=== PATIENT | male | born 1985 | race Caucasian/White ===

== ENCOUNTER 2025-03-24 01:31 | Observation (INO) ==
--- NOTE | 2025-03-24 01:49 | Emergency Department Note ---
Impression & Plan Acute dehydration, Abdominal pain, ROBERT (acute kidney injury), Nausea & vomiting, Abnormal behavior, High serum lactate ED Provider Note CHIEF COMPLAINT: Vomiting, muscle pain HISTORY OF PRESENTING ILLNESS: This 39-year-old male patient presents to the emergency department for evaluation of abdominal pain, nausea, and vomiting. Symptoms started this morning. Symptoms have gotten worse throughout the day. He now has muscle pain and thinks he is dehydrated. The patient is also concerned that he is septic because he has a history of sepsis. He has been seen recently at different ERs over the past couple weeks for his symptoms without cause found per patient. He has an appointment with GI in May. The patient has a history of cannabinoid hyperemesis, but states that this feels much different than his typical symptoms. The patient states that he has not had marijuana in the past 2 days. He denies any other drug use. He denies any alcohol use. He denies any injury or trauma. He denies any fevers, cough, or URI symptoms. REVIEW OF SYSTEMS: See HPI for pertinent positives and pertinent negatives. ALLERGIES: Wellbutrin MEDICATIONS: [place], Effexor, Lamictal PAST MEDICAL HISTORY: Manic depressive disorder. History of CCY. PHYSICAL EXAM: VITALS: Vitals are noted on the nurse's note and reviewed by myself. GENERAL: The patient was very anxious appearing on exam and had racing thoughts at times, but then was clear in his thoughts other times. The patient was rocking on his hands and knees on the bed saying that his abdominal pain and nausea was very bad. The patient also asked multiple times for narcotic pain medication stating that the other ER usually give him narcotics. SKIN: The patient has multiple tattoos. He has some redness to the bilateral thighs, but difficult to assess if this was secondary to him rocking on the bed or from a possible developing infection. No obvious fluctuance, induration, pointing, or discharge. The patient does have a couple areas of dry skin and eczema scattered on his body, but mainly to his bilateral knees. No other obvious rashes or skin lesions of concern noted. Capillary refill <2 sec. EYES: PERRLA. EOMI without pain. Conjunctivae without injection, sclerae without icterus. NOSE: Patent without discharge. MOUTH: Mucous membranes moist. Uvula midline. Airway patent. NECK: Supple without nuchal rigidity. HEART: Tachycardic without murmurs gallops or rubs. LUNGS: Clear to auscultation bilaterally without wheezes, rales or rhonchi. No retractions or accessory muscle use. ABDOMEN: Positive bowel sounds x 4. Normal tympanic percussion. Soft, diffusely tender to palpation over his entire abdomen. No masses or hepatosplenomegaly. No CVA tenderness. The patient is tender to palpation even with light palpation, but no rigidity or rebound tenderness. No focal RLQ or LLQ tenderness. MUSCULOSKELETAL: No gross musculoskeletal defects. Full range of motion of the bilateral upper and lower extremities. Strength 5/5 and equal in the bilateral upper and lower extremities. Peripheral pulses 2+ and equal in the bilateral upper and lower extremities. NEURO: Patient was alert and oriented, but was acting as above in the general exam. The patient denies any suicidal or homicidal ideation. DIFFERENTIAL DIAGNOSIS: Differential diagnosis includes hepatitis, pancreatitis, cholecystitis, cholelithiasis, appendicitis, kidney stone, pyelonephritis, UTI, gastritis, gastroenteritis, mesenteric adenitis, obstruction, constipation, hernia, abdominal abscess, perforation, diverticulitis, IBD, ischemic colitis, abdominal aortic aneurysm, testicular torsion, prostatitis, angina, TN, pericarditis, myocarditis, aortic dissection, pleurisy, pneumothorax, PE, pneumonia, pneumomediastinum, esophagitis, esophageal spasm, GERD, perforated esophagus, perforated duodenal/gastric ulcer, pancreatitis, cholecystitis, costochondritis, musculoskeletal, bronchitis, URI, or others. ED COURSE AND MEDICAL DECISION MAKING: MEDICATIONS GIVEN: A total of 2.5 L normal saline solution bolus. Tylenol 1000 mg IV and Zofran 4 mg IV. Reglan 10 mg IV. Ativan 1 mg IV. Phenergan 25 mg IV. Protonix 40 mg IV and Pepcid 20 mg IV. Fentanyl 50 mcg IV. Cefepime 2 g IV. Labetalol 5 mg IV. MONITOR: Continuous plumbing service technician: Order was placed for continuous plumbing service technician. Patient was placed on the plumbing service technician and continuous pulse ox. Patient was noted to be in sinus tachycardia at an initial rate of 110 bpm per my interpretation. EKG: EKG was interpreted by myself as sinus tachycardia at 119 bpm, but no acute ST or T wave changes. QT/QTc of 362/509. INTERPRETATION OF LABS: I interpreted the labs with full lab results as below in the lab section of this note. Laboratory results pertinent to the emergent complaint are discussed in the MDM section below. The patient was advised to follow up with their PCP and/or specialist(s) for further outpatient monitoring and management of any abnormal results. INTERPRETATION OF IMAGING: Imaging studies were interpreted by myself and read by radiology as per the imaging section of this note. The patient was advised to follow up with their PCP and/or specialist(s) for further outpatient management of any non-emergent abnormal findings. CT scan of the abdomen pelvis with IV contrast showed mild prostatomegaly with chronic cystitis/obstructive changes in urinary bladder as well as a subcentimeter left renal simple cortical cyst. No other acute abnormalities noted. Chest x-ray read by radiology as negative for acute cardiopulmonary etiology. However, per my interpretation there was concern for possible abnormality on the right side. Therefore, CTA of the chest was obtained. CTA of the chest with IV contrast showed no evidence for PE or other acute cardiopulmonary etiology. The distal esophagus shows mild edematous wall thickening with mucosal hyperenhancement and periesophageal fat stranding suggestive of esophagitis. No evidence for esophageal perforation, rupture, or tear. CT scan of the head without contrast was negative for acute intracranial abnormality. CONSULTATIONS: On-call hospitalist CRITICAL CARE: I have personally spent 45 minutes of critical care time in the direct management of this patient. This includes bedside care, interpretation of diagnostic studies, and testing, discussion with consultants, patient, and family members, and other required patient management activities. This 45 minutes is in excess of all separately billable procedures. MDM SUMMARY: I examined the patient. The patient presents for evaluation of abdominal pain, nausea, and vomiting. However, on exam the patient appears very anxious and somewhat jittery and then would rock on the bed on his hands and knees and was acting somewhat appropriate. There was concern that the patient was under the influence of drugs including possible meth or ecstasy. However, the patient denies any drug use other than marijuana use 2 days ago. He denies any alcohol use. He denies any injury or trauma. He states that he is not had any fevers or URI symptoms, but does have a history of sepsis. The patient states that he has been having episodes of abdominal pain recently with unremarkable workups in other ERs. The patient has an appoint with GI in May. The patient states that he has a history of cannabinoid hyperemesis syndrome, but this feels much different. An IV lock was placed and labs were drawn. The patient was initially given 1 L normal saline solution bolus, IV Tylenol, IV Zofran, and IV Reglan. The patient had some additional nausea and vomiting and was given Phenergan 25 mg IV. After the patient's lactate came back elevated at 3.5 and the patient was given an additional 1 L normal saline solution bolus per his actual body weight. However, the patient's lactate was still elevated at 3.0 even after the 2 L of fluid so he was given an additional 500 mL liter normal saline solution bolus per his actual body weight calculation. Blood cultures were drawn and he was given cefepime 2 g IV. No obvious source for infection other than possible developing cellulitis to his bilateral thighs which may also just be red from him rolling around on the bed. White blood cell count normal at 7.15. Hemoglobin normal at 17.6. Platelet count elevated at 408. PT/INR were normal. Sodium low at 134, potassium low at 3.4, anion gap elevated at 14, BUN elevated at 26, creatinine elevated at 1.89, glucose elevated 139, and total bilirubin elevated at 2.3. Lipase normal. High-sensitivity troponin normal. Procalcitonin normal. Initial lactate elevated at 3.5 with repeat still elevated at 3.0. Urinalysis after the 2.5 L of normal saline solution was negative. Urine drug screen positive for marijuana, but otherwise negative. Medical alcohol level negative. Acetaminophen and salicylate levels negative. Initially a chest x-ray and CT scan of the abdomen and pelvis were obtained. However, after results of the laboratory studies, poor improvement with multiple medications, and continued presentation on exam, a CT scan of the chest as well as CT scan of the head were obtained as well. CT scan of the abdomen pelvis with IV contrast showed mild prostatomegaly with chronic cystitis/obstructive changes in urinary bladder as well as a subcentimeter left renal simple cortical cyst. No other acute abnormalities noted. Chest x-ray read by radiology as negative for acute cardiopulmonary etiology. However, per my interpretation there was concern for possible abnormality on the right side. Therefore, CTA of the chest was obtained. CTA of the chest with IV contrast showed no evidence for PE or other acute cardiopulmonary etiology. The distal esophagus shows mild edematous wall thickening with mucosal hyperenhancement and periesophageal fat stranding suggestive of esophagitis. No evidence for esophageal perforation, rupture, or tear. CT scan of the head without contrast was negative for acute intracranial abnormality. Question whether the patient's symptoms may be secondary to dehydration from cannabinoid hyperemesis syndrome versus sepsis versus SIRS versus other etiology. I had a meaningful discussion about this patient with Dr. Mackay who agrees with my assessment and the treatment plan. The patient is not stable to be discharged home and will require admission. I spoke with the on-call hospitalist who agreed to admit the patient for further evaluation and treatment. Please refer to their dictation for further details. The patient's care was transferred in stable condition. DIAGNOSIS: Dehydration ROBERT Abdominal pain Nausea and vomiting Elevated lactate Abnormal behavior Past Med/Surg History Problem List Hypokalemia Bipolar disorder Hypertension High serum lactate (Acute) Abnormal behavior (Acute) Nausea & vomiting (Acute) ROBERT (acute kidney injury) (Acute) Abdominal pain (Acute) Acute dehydration (Acute) Surgical History History of cholecystectomy Family History Father Crohn's disease Mother Irritable bowel syndrome Social History (Updated 03/24/25 @ 11:01 by Ioana Mathews MD) Smoking Status: Current every day smoker Tobacco Type: E-cigarettes / Vaping Hx Alcohol Use: No Hx Substance Use: Yes Last Used Substance: Days (ago) Preferred Language: German Cable Braider Required: Yes Beliefs That Will Affect Care: None marital status: Single Current Living Situation: Alone current occupational status: employed 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 [employer] Feels Safe at Home: Yes Assistive Devices: None Allergies Allergies Allergy/AdvReac Type Severity Reaction Status Date / Time bupropion [From Wellbutrin] Allergy Verified 03/24/25 08:56 Home Meds Home Medications Medication Instructions Recorded Confirmed Unobtainable 03/24/25 03/24/25 Results & Data (ED) Vital Signs Vital Signs - 24 hr 03/24/25 01:35 03/24/25 02:00 03/24/25 02:24 Temperature 36.6 C Temperature Source Oral Pulse Rate 123 H 112 H Pulse Rate [Apical] 115 H Pulse Rate from SpO2 Sensor Pulse Rhythm [Apical] Respiratory Rate 20 18 Respiratory Effort / Characteristics Non-Labored Spontaneous Respiratory Depth Normal Respiratory Pattern Blood Pressure 158/117 H Blood Pressure [Right Arm] 181/118 H Blood Pressure Mean 130 Blood Pressure Mean [Right Arm] 139 Pulse Oximetry 99 97 Oxygen Delivery Method Room Air Room Air Sepsis Recent Fever Within 48 Hours No Sepsis New/Unexplained Change in Mental Status No Sepsis Action Taken by Nursing No Action Required 03/24/25 02:33 03/24/25 03:03 03/24/25 03:30 Temperature Temperature Source Pulse Rate 112 H 104 H 103 H Pulse Rate [Apical] Pulse Rate from SpO2 Sensor 102 H Pulse Rhythm [Apical] Respiratory Rate 14 18 17 Respiratory Effort / Characteristics Respiratory Depth Respiratory Pattern Blood Pressure 159/113 H 183/106 H Blood Pressure [Right Arm] Blood Pressure Mean 128 131 Blood Pressure Mean [Right Arm] Pulse Oximetry 98 98 98 Oxygen Delivery Method Room Air Room Air Room Air Sepsis Recent Fever Within 48 Hours Sepsis New/Unexplained Change in Mental Status Sepsis Action Taken by Nursing 03/24/25 04:00 03/24/25 04:30 03/24/25 04:44 Temperature 37.1 C Temperature Source Oral Pulse Rate 105 H 103 H Pulse Rate [Apical] Pulse Rate from SpO2 Sensor Pulse Rhythm [Apical] Respiratory Rate 20 18 Respiratory Effort / Characteristics Respiratory Depth Respiratory Pattern Blood Pressure 177/119 H 171/123 H Blood Pressure [Right Arm] Blood Pressure Mean 140 139 Blood Pressure Mean [Right Arm] Pulse Oximetry 98 98 Oxygen Delivery Method Room Air Room Air Sepsis Recent Fever Within 48 Hours Sepsis New/Unexplained Change in Mental Status Sepsis Action Taken by Nursing 03/24/25 05:15 03/24/25 05:15 03/24/25 05:19 Temperature Temperature Source Pulse Rate 115 H Pulse Rate [Apical] 111 H 101 H Pulse Rate from SpO2 Sensor Pulse Rhythm [Apical] Regular Respiratory Rate 15 20 Respiratory Effort / Characteristics Non-Labored Spontaneous Non-Labored Spontaneous Respiratory Depth Normal Normal Respiratory Pattern Regular Regular Blood Pressure 168/116 H Blood Pressure [Right Arm] 168/116 H 146/98 H Blood Pressure Mean Blood Pressure Mean [Right Arm] 133 114 Pulse Oximetry 97 94 Oxygen Delivery Method Room Air Room Air Sepsis Recent Fever Within 48 Hours Sepsis New/Unexplained Change in Mental Status Sepsis Action Taken by Nursing 03/24/25 06:28 03/24/25 06:30 03/24/25 06:34 Temperature Temperature Source Pulse Rate 90 92 H Pulse Rate [Apical] 92 H Pulse Rate from SpO2 Sensor Pulse Rhythm [Apical] Regular Respiratory Rate 17 Respiratory Effort / Characteristics Non-Labored Spontaneous Respiratory Depth Normal Respiratory Pattern Regular Blood Pressure 172/117 H Blood Pressure [Right Arm] 172/117 H Blood Pressure Mean Blood Pressure Mean [Right Arm] 135 Pulse Oximetry 99 Oxygen Delivery Method Room Air Sepsis Recent Fever Within 48 Hours Sepsis New/Unexplained Change in Mental Status Sepsis Action Taken by Nursing Laboratory Data 03/24/25 01:57 03/24/25 01:57 Lab Results 03/24/25 03/24/25 03/24/25 Range/Units 01:57 02:07 03:55 WBC 7.15 (4.8-10.8) K/ul RBC 5.93 (4.70-6.10) M/uL Hgb 17.6 (14.0-18.0) g/dl Hct 50.6 (42.0-52.0) % MCV 85.3 (80.0-100.0) fL MCH 29.7 (25.0-34.0) pg MCHC 34.8 (32.0-36.0) g/dL RDW Std Deviation 40.1 (36.4-46.3) fL RDW Coeff of Fidelia 12.9 (11.5-14.5) % Plt Count 408 H (130-400) K/uL MPV 9.9 (9.4-12.4) fL Immature Gran % (Auto) 0.6 % Neut % (Auto) 68.2 % Lymph % (Auto) 21.7 % [place] % (Auto) 9.1 % Eos % (Auto) 0.1 % Baso % (Auto) 0.3 % Neut # (Auto) 4.88 (1.40-6.50) K/uL Lymph # (Auto) 1.55 (1.20-3.40) K/uL [place] # (Auto) 0.65 H (0.11-0.59) K/uL Eos # (Auto) 0.01 (0.00-0.50) K/uL Baso # (Auto) 0.02 (0.00-0.20) K/uL Immature Gran # (Auto) 0.04 (0.01-0.20) K/uL PT 11.0 (9.0-12.0) Seconds INR 1.0 (0.9-1.1) Sodium 134 L (136-145) mmol/L Potassium 3.4 L (3.5-5.1) mmol/L Chloride 91 L (98-107) mmol/L Carbon Dioxide 29 (21-32) mmol/L Anion Gap 14 H (3-11) BUN 26 H (6-23) mg/dl Creatinine 1.89 H (0.6-1.4) mg/dl Est Cr Clr Drug Dosing 44.8 ml/min eGFR 45.46 BUN/Creatinine Ratio 13.8 (10-20) Glucose 139 H (70-99(Fasting)) mg/dl Lactate 3.5 H* 3.0 H* (0.4-2.0) mmol/L Calcium 10.9 H (8.6-10.3) mg/dl Magnesium 2.3 (1.7-2.4) mg/dl Total Bilirubin 2.3 H (0.2-1.0) mg/dl Direct Bilirubin 0.3 H (0-0.2) mg/dl AST 17 (13-39) U/L ALT 11 (7-52) U/L Alkaline Phosphatase 72 (34-104) U/L Total Creatine Kinase 49 (30-223) U/L Troponin I High Sens 6.1 (0-20) pg/ml Total Protein 8.8 H (6.0-8.3) gm/dl Albumin 5.2 H (3.4-5.0) gm/dl Globulin 3.6 (2.5-4.0) gm/dl Albumin/Globulin Ratio 1.4 (0.9-2) Lipase 38 (11-82) U/L Procalcitonin 0.08 (0-0.5) ng/ml Urine Color Urine Appearance (Clear) Urine pH (4.5-7.5) Ur Specific [place] (1.000-1.030) Urine Protein (Negative) Urine Glucose (UA) (Negative) Urine Ketones (Negative) Urine Blood (Negative) Urine Nitrite (Negative) Urine Bilirubin (Negative) Urine Urobilinogen (Negative) Ur Leukocyte Esterase (Negative) Salicylates < 3.0 L (3.0-30) mg/dl Urine Opiates Screen (Neg) Ur Methadone, Qual (Neg) Urine Fentanyl Screen (Neg) Acetaminophen < 3 L (10-30) ug/ml Urine Barbiturates (Neg) Ur Phencyclidine (PCP) (Neg) U Amphetamin/Meth Scrn (Neg) MDMA (Ecstasy) Screen (Neg) U Benzodiazepines Scrn (Neg) Ur Cocaine Metabolite (Neg) U Marijuana (THC) Screen (Neg) Ethyl Alcohol mg/dL < 10.0 (<10.0) mg/dl 03/24/25 Range/Units 05:09 WBC (4.8-10.8) K/ul RBC (4.70-6.10) M/uL Hgb (14.0-18.0) g/dl Hct (42.0-52.0) % MCV (80.0-100.0) fL MCH (25.0-34.0) pg MCHC (32.0-36.0) g/dL RDW Std Deviation (36.4-46.3) fL RDW Coeff of Fidelia (11.5-14.5) % Plt Count (130-400) K/uL MPV (9.4-12.4) fL Immature Gran % (Auto) % Neut % (Auto) % Lymph % (Auto) % [place] % (Auto) % Eos % (Auto) % Baso % (Auto) % Neut # (Auto) (1.40-6.50) K/uL Lymph # (Auto) (1.20-3.40) K/uL [place] # (Auto) (0.11-0.59) K/uL Eos # (Auto) (0.00-0.50) K/uL Baso # (Auto) (0.00-0.20) K/uL Immature Gran # (Auto) (0.01-0.20) K/uL PT (9.0-12.0) Seconds INR (0.9-1.1) Sodium (136-145) mmol/L Potassium (3.5-5.1) mmol/L Chloride (98-107) mmol/L Carbon Dioxide (21-32) mmol/L Anion Gap (3-11) BUN (6-23) mg/dl Creatinine (0.6-1.4) mg/dl Est Cr Clr Drug Dosing ml/min eGFR BUN/Creatinine Ratio (10-20) Glucose (70-99(Fasting)) mg/dl Lactate (0.4-2.0) mmol/L Calcium (8.6-10.3) mg/dl Magnesium (1.7-2.4) mg/dl Total Bilirubin (0.2-1.0) mg/dl Direct Bilirubin (0-0.2) mg/dl AST (13-39) U/L ALT (7-52) U/L Alkaline Phosphatase (34-104) U/L Total Creatine Kinase (30-223) U/L Troponin I High Sens (0-20) pg/ml Total Protein (6.0-8.3) gm/dl Albumin (3.4-5.0) gm/dl Globulin (2.5-4.0) gm/dl Albumin/Globulin Ratio (0.9-2) Lipase (11-82) U/L Procalcitonin (0-0.5) ng/ml Urine Color Yellow Urine Appearance Clear (Clear) Urine pH 6.5 (4.5-7.5) Ur Specific [place] 1.042 H (1.000-1.030) Urine Protein Negative (Negative) Urine Glucose (UA) Negative (Negative) Urine Ketones Negative (Negative) Urine Blood Negative (Negative) Urine Nitrite Negative (Negative) Urine Bilirubin Negative (Negative) Urine Urobilinogen Negative (Negative) Ur Leukocyte Esterase Negative (Negative) Salicylates (3.0-30) mg/dl Urine Opiates Screen Neg (Neg) Ur Methadone, Qual Neg (Neg) Urine Fentanyl Screen Neg (Neg) Acetaminophen (10-30) ug/ml Urine Barbiturates Neg (Neg) Ur Phencyclidine (PCP) Neg (Neg) U Amphetamin/Meth Scrn Neg (Neg) MDMA (Ecstasy) Screen Neg (Neg) U Benzodiazepines Scrn Neg (Neg) Ur Cocaine Metabolite Neg (Neg) U Marijuana (THC) Screen Pos H (Neg) Ethyl Alcohol mg/dL (<10.0) mg/dl Administered Medications Discontinued Medications Fentanyl Citrate (Fentanyl Citrate Pf 100 Mcg/2 Ml Vial) 50 mcg IV NOW STA Stop: 03/24/25 07:40 Last Admin: 03/24/25 07:54 Dose: 50 mcg Documented By: MPD Sodium Chloride (Nss) 1,000 mls @ 999 mls/hr IV .Q1H1M ONE Stop: 03/24/25 02:57 Last Infusion: 03/24/25 03:00 Dose: Infused Documented By: Admin: 03/24/25 02:18 Dose: 999 mls/hr Documented By: SAMAN Acetaminophen (Ofirmev) 1,000 mg in 100 mls @ 400 mls/hr IV NOW STA Stop: 03/24/25 02:11 Last Infusion: 03/24/25 02:33 Dose: Infused Documented By: Admin: 03/24/25 02:18 Dose: 400 mls/hr Documented By: AN Sodium Chloride (Nss) 1,000 mls @ 999 mls/hr IV .Q1H1M ONE Stop: 03/24/25 03:43 Last Infusion: 03/24/25 03:50 Dose: Infused Documented By: Admin: 03/24/25 02:55 Dose: 999 mls/hr Documented By: SAMAN Cefepime HCl (Maxipime 2000mg) 2,000 mg in 20 mls @ 5 mls/min IV NOW STA; Protocol Stop: 03/24/25 04:15 Last Admin: 03/24/25 04:57 Dose: 5 mls/min Documented By: DARIA Sodium Chloride (Nss) 500 mls @ 999 mls/hr IV .Q31M ONE Stop: 03/24/25 04:44 Last Infusion: 03/24/25 05:26 Dose: Infused Documented By: Admin: 03/24/25 05:01 Dose: 999 mls/hr Documented By: DARIA Promethazine HCl (Phenergan) 25 mg in 51 mls @ 204 mls/hr IV NOW STA Stop: 03/24/25 05:18 Last Infusion: 03/24/25 05:40 Dose: Infused Documented By: Admin: 03/24/25 05:24 Dose: 204 mls/hr Documented By: DARIA Famotidine (Pepcid 20mg Iv Push) 20 mg in 5 mls @ 2.5 mls/min IV NOW STA Stop: 03/24/25 07:40 Last Admin: 03/24/25 07:46 Dose: 2.5 mls/min Documented By: ELIZABETH Pantoprazole Sodium (Protonix) 40 mg in 10 mls @ 5 mls/min IV NOW ONE Stop: 03/24/25 07:40 Last Admin: 03/24/25 07:46 Dose: 5 mls/min Documented By: ELIZABETH Lactated Ringer's (Lr) 1,000 mls @ 125 mls/hr IV .Q8H OSMAR Stop: 03/27/25 08:44 Last Infusion: 03/24/25 19:07 Dose: Infused Documented By: Admin: 03/24/25 09:08 Dose: 125 mls/hr Documented By: ELIZABETH Potassium Chloride (K Gonzalo / Wtr) 10 meq in 100 mls @ 100 mls/hr IV ONE ONE Stop: 03/24/25 10:15 Last Infusion: 03/24/25 10:50 Dose: Infused Documented By: Admin: 03/24/25 09:35 Dose: 100 mls/hr Documented By: ELIZABETH Ioversol (Optiray 320 100ml) 100 ml IV ONCE ONE Stop: 03/24/25 03:14 Last Admin: 03/24/25 03:13 Dose: 93 ml Documented By: MERLE Ioversol (Optiray 320 125ml) 125 ml IV ONCE ONE Stop: 03/24/25 06:19 Last Admin: 03/24/25 06:18 Dose: 118 ml Documented By: MERLE Labetalol HCl (Labetalol Hcl Iv 5 Mg/Ml 20ml) 5 mg IV NOW STA Stop: 03/24/25 04:46 Last Admin: 03/24/25 05:15 Dose: 5 mg Documented By: DARIA Lorazepam (Lorazepam 2 Mg/1 Ml Vial) 1 mg IV NOW STA Stop: 03/24/25 02:44 Last Admin: 03/24/25 02:54 Dose: 1 mg Documented By: SAMAN Metoclopramide HCl (Metoclopramide Hcl Inj 5 Mg/Ml 2 Ml Vial) 10 mg IV NOW STA Stop: 03/24/25 02:26 Last Admin: 03/24/25 02:32 Dose: 10 mg Documented By: AN Morphine Sulfate (Morphine Sulfate 2 Mg/Ml Carp) 1 mg IV Q3H PRN PRN Reason: Pain 8,9,10 Stop: 04/07/25 10:26 Last Admin: 03/24/25 16:59 Dose: 1 mg Documented By: Admin: 03/24/25 13:23 Dose: 1 mg Documented By: ANEL Ondansetron HCl (Ondansetron Inj 2 Mg/Ml 2 Ml Vial) 4 mg IV NOW STA Stop: 03/24/25 01:58 Last Admin: 03/24/25 02:18 Dose: 4 mg Documented By: SAMAN Ondansetron HCl (Ondansetron Inj 2 Mg/Ml 2 Ml Vial) 4 mg IV Q4H PRN PRN Reason: Nausea Stop: 04/23/25 09:03 Last Admin: 03/24/25 13:23 Dose: 4 mg Documented By: ANEL Imaging Data Radiologist's Impression: Abdomen/Pelvis CT 03/24/25 01:57 EXAM: CT abd pelvis IV con only CLINICAL HISTORY: Abdominal pain, N/V TECHNIQUE: Multiple contiguous axial images were obtained from the level of diaphragm to the pubis symphysis. This study was acquired after the IV administration of iodinated contrast material, given the patient's indications for the examination. If IV contrast material had not been administered, the likelihood of detecting abnormalities relevant to the patient's condition would have been substantially decreased. Coronal and sagittal reformatted images were generated and reviewed to improve anatomic localization and optimize lesion detection. CT scan was performed according to ALARA (as low as reasonably achievable). COMPARISON: none FINDINGS: The visualized lung bases are clear. ABDOMEN/PELVIS: The liver is normal in size and attenuation. No focal liver lesions are seen. There is no intra or extrahepatic biliary ductal dilatation. Hepatic vasculature is patent. Post cholecystectomys status. The spleen, pancreas, and adrenal glands are unremarkable. The kidneys are normal in size and attenuation. There is no hydronephrosis or perinephric fat stranding. No renal calculi or renal masses are identified. A subcentimetric left renal simple cortical cyst. The ureters are normal in caliber and no ureteral calculi are seen. Mild prostatomegaly, measuring 33cc in volume. Diffuse wall thickening of urinary bladder. No evidence of focal or diffuse bowel wall thickening or evidence of bowel obstruction is seen. The appendix is visualized in the right lower quadrant and appears within normal limits. No adenopathy or fluid collections are seen. The aorta is normal in caliber. No aggressive appearing osseous lesions are identified. IMPRESSION: 1. Mild prostatomegaly with chronic cystitis/obstructive changes in urinary bladder. 2. A subcentimetric left renal simple cortical cyst. Electronically signed by Arun Stinson 03-24-2025 04:34 AM Chest X-Ray 03/24/25 04:13 EXAM: XR chest 1V portable CLINICAL HISTORY: abd pain TECHNIQUE: An X-ray image of the chest is obtained in AP projection. COMPARISON: No prior studies are available for comparison. FINDINGS: Pulmonary Parenchyma: Lungs are clear bilaterally. No evidence of consolidation, collapse, or focal opacities. No pulmonary nodules are identified. No evidence of pleural effusion or pleural thickening. Heart and Mediastinum: Heart size and shape are normal. No mediastinal widening or masses. No hilar or mediastinal lymphadenopathy. Bony Thorax: Bony thorax appears intact without fractures or deformities. Soft Tissues: Soft tissues overlying the chest wall are unremarkable. IMPRESSION: No acute cardiopulmonary abnormalities are identified. Electronically signed by Eulalio Atkinson 03-24-2025 05:[address] 03/24/25 04:39 EXAM: CT head/brain wo con CLINICAL HISTORY: headache, HTN TECHNIQUE: Multiple axial images are obtained from the skull base to the vertex without contrast. CT scan was performed according to ALARA (as low as reasonable achievable). COMPARISON: None. FINDINGS: The brain shows normal morphology, attenuation, and volume for age. No evidence of space occupying lesion, hemorrhage, edema, mass effect, midline shift, extra axial collection, or hydrocephalus is noted. Ventricles, sulci, and basal cisterns are symmetric and normal in size and configuration. The sofia-white matter differentiation is preserved. Visualized paranasal sinuses and mastoid air cells are well aerated. Orbital contents are within normal limits. Bony structures are intact. IMPRESSION: 1. No evidence of acute intracranial abnormality is demonstrated Electronically signed by Arun Stinson 03-24-2025 07:09 AM Chest CTA 03/24/25 05:14 EXAM: CT angio chest PE protocol CLINICAL HISTORY: Eval PE or esophageal tear/rupture or aneurysm TECHNIQUE: Contiguous axial images were obtained from the neck base through the upper abdomen following intravenous administration of iodinated contrast material. Angiographic images were processed, 3D MIP images were acquired for interpretation. If IV contrast material had not been administered, the likelihood of detecting abnormalities relevant to the patient's condition would have been substantially decreased. Coronal and sagittal 3-D MIPs were likewise performed and indicated to increase the sensitivity of detectin diffuse clinically relevant pathology. CT scan was performed according to ALARA (as low as reasonable achievable). COMPARISON: None. FINDINGS: Adequate contrast bolus without evidence of pulmonary embolism. The central airways are patent. The lungs are clear. No pleural effusion. The heart, aorta, and pulmonary arteries are of normal size and configuration. There are no appreciable coronary artery and aortic atherosclerotic calcifications. No pericardial effusion is identified. The thyroid is unremarkable. No mediastinal, hilar, or axillary lymphadenopathy is noted. No suspicious lytic or sclerotic osseous lesions are identified. Distal esophagus shows mild edematous wall thickening with mucosal hyperenhancement and galina-esophageal fat stranding with dilatation of proximal esophagus showing air-fluid level. IMPRESSION: 1. No evidence of pulmonary embolism or pulmonary disease. 2. Distal esophagus shows mild edematous wall thickening with mucosal hyperenhancement and galina-esophageal fat stranding, suggestive of esophagitis. Electronically signed by Arun Stinson 03-24-2025 07:09 AM Discharge Plan Visit Data Chief Complaint: Abdominal Pain Stated Complaint: VOMITING, MUSCLE PAIN ED Provider: Lia Mackay ED Midlevel Provider: Zeina Watkins Discharge Problem: Acute dehydration, Abdominal pain, ROBERT (acute kidney injury), Nausea & vomiting, Abnormal behavior, High serum lactate Patient Disposition: Admitted As Inpatient Condition: Fair Discharge Instructions Interventions: ED Discharge Assessment Last Done: 03/24/25 10:21 Discharge Problem: Abdominal pain Qualifiers: Abdominal location: generalized Qualified Code(s): R10.84 - Generalized abdominal pain Nausea & vomiting Qualifiers: Vomiting type: unspecified Qualified Code(s): R11.2 - Nausea with vomiting, unspecified
[2025-03-24] MEDS: ACETAMINOPHEN 1,000 MG/100 ML VIAL IV STA (02:18)
[2025-03-24] MEDS: ONDANSETRON INJ 2 MG/ML 2 ML VIAL IV STA (02:18)
[2025-03-24] MEDS: SODIUM CHLORIDE 0.9% 1,000 ML IV ONE ×2 (02:18→02:55)
[2025-03-24 02:19] LABS: Basophils # (auto) 0.02 K/uL (0.00-0.20); Basophils % (auto) 0.3 %; Eosinophils # (auto) 0.01 K/uL (0.00-0.50); Eosinophils % (auto) 0.1 %; Hematocrit (blood only) 50.6 % (42.0-52.0); Hemoglobin 17.6 g/dl (14.0-18.0); Immature Granulocytes # (auto) 0.04 K/uL (0.01-0.20); Immature Granulocytes % (auto) 0.6 %; Lymphocytes # (auto) 1.55 K/uL (1.20-3.40); Lymphocytes % (auto) 21.7 %; Mean Corpuscular Hemoglobin 29.7 pg (25.0-34.0); Mean Corpuscular Hgb Conc 34.8 g/dL (32.0-36.0); Mean Corpuscular Volume 85.3 fL (80.0-100.0); Mean Platelet Volume 9.9 fL (9.4-12.4); Monocytes # (auto) 0.65 K/uL (0.11-0.59); Monocytes % (auto) 9.1 %; Neutrophils # (auto) 4.88 K/uL (1.40-6.50); Neutrophils % (auto) 68.2 %; Platelet Count 408 K/uL (130-400); RDW Coefficient of Variation 12.9 % (11.5-14.5); RDW Standard Deviation 40.1 fL (36.4-46.3); Red Blood Count 5.93 M/uL (4.70-6.10); White Blood Count 7.15 K/ul (4.8-10.8)
[2025-03-24] MEDS: METOCLOPRAMIDE HCL INJ 5 MG/ML 2 ML VIAL IV STA (02:32)
[2025-03-24 02:38] LABS: Albumin Globulin Ratio 1.4 (0.9-2); Albumin Level 5.2 gm/dl (3.4-5.0); BUN Creatinine Ratio 13.8 (10-20); Bilirubin,Total 2.3 mg/dl (0.2-1.0); Calcium 10.9 mg/dl (8.6-10.3); Creatinine Clr Calc Pharmacy 44.8 ml/min; Globulin 3.6 gm/dl (2.5-4.0); Magnesium 2.3 mg/dl (1.7-2.4); Potassium 3.4 mmol/L (3.5-5.1); Total Protein 8.8 gm/dl (6.0-8.3)
[2025-03-24 02:39] LABS: Acetaminophen < 3 ug/ml (10-30); Salicylate < 3.0 mg/dl (3.0-30)
[2025-03-24 02:44] LABS: Troponin I High Sensitivity 6.1 pg/ml (0-20)
[2025-03-24] MEDS: LORazepam 2 MG/1 ML VIAL IV STA (02:54)
[2025-03-24] MEDS: OPTIRAY 320 100ml IV ONE (03:13)
--- NOTE | 2025-03-24 04:35 | CT Scan Report ---
EXAM: CT abd pelvis IV con only CLINICAL HISTORY: Abdominal pain, N/V TECHNIQUE: Multiple contiguous axial images were obtained from the level of diaphragm to the pubis symphysis. This study was acquired after the IV administration of iodinated contrast material, given the patient's indications for the examination. If IV contrast material had not been administered, the likelihood of detecting abnormalities relevant to the patient's condition would have been substantially decreased. Coronal and sagittal reformatted images were generated and reviewed to improve anatomic localization and optimize lesion detection. CT scan was performed according to ALARA (as low as reasonably achievable). COMPARISON: none FINDINGS: The visualized lung bases are clear. ABDOMEN/PELVIS: The liver is normal in size and attenuation. No focal liver lesions are seen. There is no intra or extrahepatic biliary ductal dilatation. Hepatic vasculature is patent. Post cholecystectomys status. The spleen, pancreas, and adrenal glands are unremarkable. The kidneys are normal in size and attenuation. There is no hydronephrosis or perinephric fat stranding. No renal calculi or renal masses are identified. A subcentimetric left renal simple cortical cyst. The ureters are normal in caliber and no ureteral calculi are seen. Mild prostatomegaly, measuring 33cc in volume. Diffuse wall thickening of urinary bladder. No evidence of focal or diffuse bowel wall thickening or evidence of bowel obstruction is seen. The appendix is visualized in the right lower quadrant and appears within normal limits. No adenopathy or fluid collections are seen. The aorta is normal in caliber. No aggressive appearing osseous lesions are identified. IMPRESSION: 1. Mild prostatomegaly with chronic cystitis/obstructive changes in urinary bladder. 2. A subcentimetric left renal simple cortical cyst. Electronically signed by Arun Stinson 03-24-2025 04:34 AM
[2025-03-24] MEDS: CEFEPIME 2000MG 2,000 MG/20 ML SYR IV STA (04:57)
[2025-03-24] MEDS: SODIUM CHLORIDE 0.9% 500 ML IV ONE (05:01)
[2025-03-24] MEDS: LABETALOL HCL IV 5 MG/ML 20ML IV STA (05:15)
[2025-03-24 05:19] LABS: Appearance Urine Clear (Clear); Bilirubin Urine Negative (Negative); Blood Urine Negative (Negative); Color Urine Yellow; Glucose Urine UA Negative (Negative); Ketones Urine Negative (Negative); Leukocyte Esterase Urine Negative (Negative); Nitrite Urine Negative (Negative); Protein Urine Negative (Negative); Specific Gravity Urine 1.042 (1.000-1.030); Urobilinogen Urine Negative (Negative); pH Urine 6.5 (4.5-7.5)
[2025-03-24] MEDS: PROMETHAZINE 25 MG/51 ML BAG IV STA (05:24)
--- NOTE | 2025-03-24 05:48 | XRay Report ---
EXAM: XR chest 1V portable CLINICAL HISTORY: abd pain TECHNIQUE: An X-ray image of the chest is obtained in AP projection. COMPARISON: No prior studies are available for comparison. FINDINGS: Pulmonary Parenchyma: Lungs are clear bilaterally. No evidence of consolidation, collapse, or focal opacities. No pulmonary nodules are identified. No evidence of pleural effusion or pleural thickening. Heart and Mediastinum: Heart size and shape are normal. No mediastinal widening or masses. No hilar or mediastinal lymphadenopathy. Bony Thorax: Bony thorax appears intact without fractures or deformities. Soft Tissues: Soft tissues overlying the chest wall are unremarkable. IMPRESSION: No acute cardiopulmonary abnormalities are identified. Electronically signed by Eulalio Atkinson 03-24-2025 05:48 AM
[2025-03-24 06:03] LABS: Amphetamines+Metham, Urine Neg (Neg); Barbiturates, Urine Neg (Neg); Benzodiazepine, Urine Neg (Neg); Cocaine, Urine Neg (Neg); Fentanyl, Urine Neg (Neg); MDMA (Ecstacy), Urine Neg (Neg); Marijuana, Urine Pos (Neg); Methadone, Urine Neg (Neg); Opiate, Urine Neg (Neg); Phencyclidine, Urine Neg (Neg)
[2025-03-24] MEDS: OPTIRAY 320 125ml IV ONE (06:18)
--- NOTE | 2025-03-24 07:10 | CT Scan Report ---
EXAM: CT angio chest PE protocol CLINICAL HISTORY: Eval PE or esophageal tear/rupture or aneurysm TECHNIQUE: Contiguous axial images were obtained from the neck base through the upper abdomen following intravenous administration of iodinated contrast material. Angiographic images were processed, 3D MIP images were acquired for interpretation. If IV contrast material had not been administered, the likelihood of detecting abnormalities relevant to the patient's condition would have been substantially decreased. Coronal and sagittal 3-D MIPs were likewise performed and indicated to increase the sensitivity of detectin diffuse clinically relevant pathology. CT scan was performed according to ALARA (as low as reasonable achievable). COMPARISON: None. FINDINGS: Adequate contrast bolus without evidence of pulmonary embolism. The central airways are patent. The lungs are clear. No pleural effusion. The heart, aorta, and pulmonary arteries are of normal size and configuration. There are no appreciable coronary artery and aortic atherosclerotic calcifications. No pericardial effusion is identified. The thyroid is unremarkable. No mediastinal, hilar, or axillary lymphadenopathy is noted. No suspicious lytic or sclerotic osseous lesions are identified. Distal esophagus shows mild edematous wall thickening with mucosal hyperenhancement and galina-esophageal fat stranding with dilatation of proximal esophagus showing air-fluid level. IMPRESSION: 1. No evidence of pulmonary embolism or pulmonary disease. 2. Distal esophagus shows mild edematous wall thickening with mucosal hyperenhancement and galina-esophageal fat stranding, suggestive of esophagitis. Electronically signed by Arun Stinson 03-24-2025 07:09 AM
--- NOTE | 2025-03-24 07:10 | CT Scan Report ---
EXAM: CT head/brain wo con CLINICAL HISTORY: headache, HTN TECHNIQUE: Multiple axial images are obtained from the skull base to the vertex without contrast. CT scan was performed according to ALARA (as low as reasonable achievable). COMPARISON: None. FINDINGS: The brain shows normal morphology, attenuation, and volume for age. No evidence of space occupying lesion, hemorrhage, edema, mass effect, midline shift, extra axial collection, or hydrocephalus is noted. Ventricles, sulci, and basal cisterns are symmetric and normal in size and configuration. The sofia-white matter differentiation is preserved. Visualized paranasal sinuses and mastoid air cells are well aerated. Orbital contents are within normal limits. Bony structures are intact. IMPRESSION: 1. No evidence of acute intracranial abnormality is demonstrated Electronically signed by Arun Stinson 03-24-2025 07:09 AM
[2025-03-24] MEDS: PANTOprazole 40 MG/10 ML SYR IV ONE (07:46)
[2025-03-24] MEDS: FAMOTIDINE 20MG IV PUSH 20 MG/5 ML SYR IV STA (07:46)
[2025-03-24] MEDS: fentaNYL citrate PF 100 MCG/2 ML VIAL IV STA (07:54)
[2025-03-24] MEDS ORDERED: hydrALAZINE HCL 20 MG/ML VIAL IV PRN (08:43)
[2025-03-24] MEDS ORDERED: LABETALOL HCL IV 5 MG/ML 20ML IV PRN (08:43)
[2025-03-24] MEDS ORDERED: PROMETHAZINE 12.5 MG/50.5 ML BAG IV PRN (09:04)
[2025-03-24] MEDS ORDERED: POLYETHYLENE (MIRALAX) 17 GM PACK PO PRN (09:05)
[2025-03-24] MEDS: LACTATED RINGER'S 1,000 ML IV SCH (09:08)
--- NOTE | 2025-03-24 09:11 | History & Physical Report ---
Date of Service March 24, 2025 Assessment & Plan (1) Nausea & vomiting: (2) Abdominal pain: (3) ROBERT (acute kidney injury): (4) Hypertension: (5) Abnormal behavior: (6) Bipolar disorder: (7) Hypokalemia: Plan This is a 39 year old gentleman with past medical history of bipolar disorder, migraines, hypertension who presented to the ED on 03/24/25 for vomiting and abdominal pain. While in the ED, he was found to be hypertensive and tachycardic. He did have a CBC that was without leukocytosis. His CMP did reveal mild hyponatremia of 134, mild hypokalemia of 3.4, elevated creatinine of 1.89, total bilirubin 2.3 but remainder of LFTs WNL. His lactate was initially elevated at 3.5. After 2.5 L of fluid, patient did have decreased to 3. His lipase was WNL at 38, procalcitonin was negative at 0.08. Urinalysis was negative for infection. His toxicology screening did reveal that he was positive for marijuana. Bromley and Lamictal levels are pending. His CTAP was negative for any acute pathology. Chest x-ray was negative. Head CT was negative. Chest CTA did reveal es ophagitis, negative for PE. Blood cultures were obtained. He was given IV fluids, Reglan, Zofran, Phenergan, Ativan, labetalol, Pepcid, pantoprazole, and fentanyl. #Nausea/vomiting/abdominal pain - With 4 months of ongoing symptoms. Appears he has been tried on pantoprazole and capsaicin cream in past per med list. CTAP without acute pathology in the abdomen CTA negative for PE, did reveal esophagitis Unsure if patient has had endoscopies in pastrefused to answer, but later told attending physician he had 2 EGDs in the last couple of months at [facility]-showed bleeding in esophagus CBC without leukocytosis, lipase within normal limits, Procal negative CMP with elevation of total bilirubin at 2.3, direct bilirubin pending. Remainder of LFTs WNL Lactate elevated at 3.5, decreased to 3 after IV fluids Blood cultures pending, s/p IV cefepime in ED but no further antibiotics recommended given normal WBC, negative procal, negative imaging GI consulted, appreciate recommendations IV PPI twice daily Zofran/Phenergan prn for N/V; Miralax prn for constipation Morphine IV low-dose as needed for severe pain Continue IVF N.p.o., allowed to have sips/chips if toleratingwill advance diet as he can tolerate #ROBERT/hypokalemia Creatinine elevated at time of admission at 1.89, unsure if patient's baseline S/p IV fluids in ED, continue upon admission Potassium mildly low at 3.4s/p repletion AM CMP and magnesium #HTN With hypertension since presenting to the ED S/p IV labetalol IV hydralazine every 6 hours first-line if SBP greater than 180 or DBP greater than 110 IV labetalol every 6 hours second line with parameters as above Unsure if he is compliant with his antihypertensive (amlodipine) and clonidine? at home #Bipolar disorder/abnormal behavior With abnormal behavior in ED. He appeared to have a depressed mood at times, refused to answer questions at times, and also appeared tangential. Also w/ auditory hallucinations per nursing. Drug screen positive for marijuana Psych consulted, appreciate recommendations Per medication list that is unconfirmedappears he was taking Abilify 10 mg daily, Lamictal 100 mg daily, lithium 300 mg twice daily, Ativan 0.5 mg as needed, risperidone 0.25 mg as needed Effexor 150 mg twice daily Will hold home medications until patient evaluated by psychiatry and when he is agreeable to verbalize what he has been taking at home DVT prophylaxis: SCD's, encourage ambulation Disposition: PCU/tele Case was discussed with Dr. Mathews at time of admission. History of Present Illness Chief Complaint: Abdominal pain Primary Care Provider: NO PCP This is a 39 year old gentleman with past medical history of bipolar disorder, migraines, hypertension who presented to the ED on 03/24/25 for vomiting and abdominal pain. The patient was seen and examined this morning. Upon my encounter, patient was lying in the position in his bed. He did not respond to his name initially but then did. He initially reported that he was having depression and was trying to go out in public more with his friends. He reported that he is "staying up until 2am drinking soda pop, water, and eating some pizza". John Paul then went on to tell me that he has been having ongoing vomiting and abdominal pain for ~4 months. He states it comes in waves meaning a "worse" wave and an "even worse" wave. He reports severe abdominal pain as well. He states he sometimes does feel nauseous prior to vomiting and other times it just comes up. Initially he did say he was having hematemesis but then denied it. He has not had a BM in 3 days but attributes this to not eating. He has been seen in the past by GI but would not answer if he has had a scope in the past. He denies any chest pain or shortness of breath. He denies lower extremity edema. He denies any urinary urgency/frequency/ or hematuria. He did not answer about what medications he has been taking at home. During my exam, John Paul would refuse to answer questions at times. He was tangential at times. He was also tearful While in the ED, he was found to be hypertensive and tachycardic. He did have a CBC that was without leukocytosis. His CMP did reveal mild hyponatremia of 134, mild hypokalemia of 3.4, elevated creatinine of 1.89, total bilirubin 2.3 but remainder of LFTs WNL. His lactate was initially elevated at 3.5. After 2.5 L of fluid, patient did have decreased to 3. His lipase was WNL at 38, procalcitonin was negative at 0.08. Urinalysis was negative for infection. His toxicology screening did reveal that he was positive for marijuana. Bromley and Lamictal levels are pending. His CTAP was negative for any acute pathology. Chest x-ray was negative. Head CT was negative. Chest CTA did reveal esophagitis, negative for PE. Blood cultures were obtained. He was given IV fluids, Reglan, Zofran, Phenergan, Ativan, labetalol, Pepcid, pantoprazole, and fentanyl. Allergies Allergy/AdvReac Type Severity Reaction Status Date / Time bupropion [From Wellbutrin] Allergy Verified 03/24/25 08:56 Home Medications Medication Instructions Recorded Confirmed Type Unobtainable 03/24/25 03/24/25 History Past Med/Surg History Problem List Hypokalemia Bipolar disorder Hypertension High serum lactate (Acute) Abnormal behavior (Acute) Nausea & vomiting (Acute) ROBERT (acute kidney injury) (Acute) Abdominal pain (Acute) Acute dehydration (Acute) Surgical History History of cholecystectomy Family History Father Crohn's disease Mother Irritable bowel syndrome Social History (Updated 03/24/25 @ 11:01 by Ioana Mathews MD) Smoking Status: Current every day smoker Tobacco Type: E-cigarettes / Vaping Preferred Language: Mohawk marital status: Single current occupational status: employed 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 Non toxic appearing. Tearful HEENT: normocephalic, atruamatic. PERRLA w/ EOM's intact. vision/hearing grossly intact Skin: warm, dry. No rashes/bruising/lesions/erythema noted CV: RRR, S1/S2 normal. No murmurs/rubs/gallops Lungs: CTA; symmetrical chest wall expansion. No acute respiratory distress Abd: tenderness to gentle palpation in epigastric region. + BS. No abdominal distention MSK: no edema in LE Neuro/Psych: AxOx3; tangential; depressed mood; tearful; refused to answer questions at times. Results & Data Results & Data Vital Signs (Past 12 Hours) Vital Signs Temp Pulse Pulse Resp BP BP Pulse Ox 03/24/25 06:34 92 H 172/117 H 03/24/25 06:30 92 H 17 172/117 H 99 03/24/25 06:28 90 03/24/25 05:19 101 H 20 146/98 H 94 03/24/25 05:15 115 H 168/116 H 03/24/25 05:15 111 H 15 168/116 H 97 03/24/25 04:44 37.1 C 03/24/25 04:30 103 H 18 171/123 H 98 03/24/25 04:00 105 H 20 177/119 H 98 03/24/25 03:30 103 H 17 98 03/24/25 03:03 104 H 18 183/106 H 98 03/24/25 02:33 112 H 14 159/113 H 98 03/24/25 02:24 112 H 03/24/25 02:00 115 H 18 181/118 H 97 03/24/25 01:35 36.6 C 123 H 20 158/117 H 99 O2 Del Method 03/24/25 06:34 03/24/25 06:30 Room Air 03/24/25 06:28 03/24/25 05:19 Room Air 03/24/25 05:15 03/24/25 05:15 Room Air 03/24/25 04:44 03/24/25 04:30 Room Air 03/24/25 04:00 Room Air 03/24/25 03:30 Room Air 03/24/25 03:03 Room Air 03/24/25 02:33 Room Air 03/24/25 02:24 03/24/25 02:00 Room Air 03/24/25 01:35 Room Air Laboratory Results CBC, lactate, UA, urine drug screen, alcohol level, ASA level, APAP level, CMP, procalcitonin reviewed Diagnostic Findings CTA chest, CT head Noncon, CXR, CT abdomen/pelvis reviewed ECG Additional Comments: Sinus tachycardia, no ischemic changes Supervising Physician Co-Signing Physician Notes PA Supervision Note: I personally saw and examined the patient. I verified all squires points and agree with BETHANY Duque with the following exceptions and/or additions: S-this patient is a 39-year-old male with history of HTN, bipolar disorder, never seen in our facility before, here with acute on chronic epigastric abdominal pain and nausea with vomiting. He admits to smoking marijuana every other day. He has had endoscopies twice previously which he thinks showed bleeding in the esophagus. No blood in the stool or blood in the vomit this time. He has been unable to keep down food or water or his home medications for the last several days. He is tearful at times and confused at times. He has not been taking his bipolar medications regularly with the vomiting. 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 History and ROS otherwise reviewed as above O- Vitals reviewed Gen: [AAOx3, NAD, becomes confused at times] HEENT: [anicteric sclerae, EOMI] CV: [RRR no mgr nl S1S2] Pulm: [CTAB no wcr] Abd: [+BS soft moans out with pain with laying the stethoscope on his abdomen without pressure, otherwise voluntary guarding all over abdomen ND no masses or hernias] Ext: [no edema, 2+ DP pulses] Skin: [no rashes, warm/dry, numerous tattoos all over entire body] Neuro: [full strength throughout, moving all extremities] A/L-[id number]-old male here with acute on chronic abdominal pain, nausea/vomiting. Suspect esophagitis and gastritis, possible cyclical vomiting syndrome or cannabis hyperemesis. Bromley toxicity could be entertained however lithium level is now returned and is undetectable. Recommended cessation of marijuana usage. Continue IV fluids, n.p.o. status, IV Protonix, IV morphine and antiemetics as needed. Consult GI to see about need for EGD. Will try to obtain old records from [facility] through nurse navigator Consult psychiatry as well for management of hallucinations, confusion, psychosis, bipolar disorder PG Care Time/CCT Total # of Minutes Spent Total Time Spent with Patient: Total time spent is greater than 50% in coordination of care (as documented) at patient's floor/unit and/or counseling patient: Coding Level of Care Code 93212 INT INP/OBS CARE 3/75MIN Diagnoses Nausea & vomiting R11.2 Vomiting type: unspecified Abdominal pain R10.84 Abdominal location: generalized ROBERT (acute kidney injury) N17.9 Hypertension I10 Abnormal behavior R46.89 Bipolar disorder F31.9 Hypokalemia E87.6 (1) Nausea & vomiting Vomiting type: unspecified Qualified Code(s): R11.2 - Nausea with vomiting, unspecified (2) Abdominal pain Abdominal location: generalized Qualified Code(s): R10.84 - Generalized abdominal pain
[2025-03-24 09:25] LABS: Bilirubin Direct 0.3 mg/dl (0-0.2)
[2025-03-24] MEDS: POTASSIUM CHLORIDE / WTR 10 MEQ/100 ML PLCT IV ONE (09:35)
--- NOTE | 2025-03-24 12:13 | Gastrointestinal Consultation ---
Date of Consultation March 24, 2025 Assessment & Plan (1) Nausea & vomiting: (2) Abdominal pain: Plan Patient is admitted with several months of nausea, vomiting, and abdominal pain. CT chest suggestive of esophagitis. His symptoms do sound like they are likely due to marijuana hyperemesis as he is better with showers. There could also be a component of cyclic vomiting syndrome. Patient was seen and examined with Dr. Hernandez. - recommend that he quit marijuana use. - he says he takes 25mg of amitriptyline as an outpatient. could consider titrating the dosage up to 50mg daily. - continue with protonix 40mg bid. - continue with promethazine 12.5mg every 6 hours prn nausea/vomiting. - will attempt to get records from EGD. Supervising Physician Co-Signing Physician Notes Patient seen in [place]. Sounds like he was started on amitriptyline and is familiar with the term cyclic vomiting disorder I believe this was the diagnosis he was given there. We did discuss the role of marijuana and cyclic vomiting disorder. Patient does report that he takes frequent showers which helps with the nausea vomiting and pain. This can be consistent with cyclic vomiting disorder from marijuana. Patient states he did go 3 months without any marijuana from November 2 January without resolution of any symptoms. He is requesting pain medication. Abdomen benign Suspect cyclic vomiting disorder with secondary aggravation potentially from marijuana hyperemesis. Agree with amitriptyline. He tells me the dose was to be escalated from 25-75. Typically the dose is increased to 51st. No plan for any endoscopy fairly recent procedure at [place]. History of Present Illness Reason for Consultation: vomiting and abdominal pain. Requesting Physician: Lian Duque PA-C Attending Physician: Ioana Mathews MD History of Present Illness Patient is a 39 year old gentleman with past medical history of bipolar disorder, migraines, hypertension who presented to the ED on 03/24/25 for vomiting and abdominal pain that he tells me has been ongoing for several months. He reports that he was admitted at [facility] earlier this year for evaluation and had an EGD that was unremarkable. He tells me he did have a second opinion read of the EGD in [place] and was told "it was like a bomb went off in there". He reports that his pain is mostly midline. he is requesting something for pain. He endorses diarrhea, but tells me he can go several days between bowel movements at times. no blood in the stools or melena. He does report regular marijuana use for 20 years. He admits that symptoms are improved with a hot shower. He is a difficult historian. 03/24/25 cbc unremarkable except platelets 408. INR 1. sodium 134, K 3.4, BUN 26, Creatinine 1.89. Lactate 3. T bili 2.3, d bili 0.3, rest of LFTs unremarkable. lipase 38. 03/24/25 Chest CTA No evidence of pulmonary embolism or pulmonary disease. Distal esophagus shows mild edematous wall thickening with mucosal hype renhancement and galina-esophageal fat stranding, suggestive of esophagitis. 03/24/25 CT A/P Mild prostatomegaly with chronic cystitis/obstructive changes in urinary bladder. A subcentimeter left renal simple cortical cyst. Allergies Allergy/AdvReac Type Severity Reaction Status Date / Time bupropion [From Wellbutrin] Allergy Verified 03/24/25 08:56 Home Medications Medication Instructions Recorded Confirmed Type Unobtainable 03/24/25 03/24/25 History Patient History Surgical History History of cholecystectomy Family History Father Crohn's disease Mother Irritable bowel syndrome Social History (Updated 03/24/25 @ 11:01 by Ioana Mathews MD) Smoking Status: Current every day smoker Tobacco Type: E-cigarettes / Vaping Hx Alcohol Use: No Hx Substance Use: Yes Last Used Substance: Days (ago) Preferred Language: Upper Sorbian [employer] 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 Beliefs That Will Affect Care: None marital status: Single Current Living Situation: Alone current occupational status: employed 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 Psychiatric: Orientation: alert and oriented x 3 Results & Data Vital Signs (Past 12 Hours) Vital Signs Temp Pulse Pulse Resp BP BP Pulse Ox 03/24/25 11:20 98.1 F 76 20 99/69 L 98 03/24/25 09:54 80 19 109/74 100 03/24/25 09:54 83 19 99 03/24/25 09:32 88 19 133/85 97 03/24/25 06:34 92 H 172/117 H 03/24/25 06:30 92 H 17 172/117 H 99 03/24/25 06:28 90 03/24/25 05:19 101 H 20 146/98 H 94 03/24/25 05:15 115 H 168/116 H 03/24/25 05:15 111 H 15 168/116 H 97 03/24/25 04:44 98.8 F 03/24/25 04:30 103 H 18 171/123 H 98 03/24/25 04:00 105 H 20 177/119 H 98 03/24/25 03:30 103 H 17 98 03/24/25 03:03 104 H 18 183/106 H 98 03/24/25 02:33 112 H 14 159/113 H 98 03/24/25 02:24 112 H 03/24/25 02:00 115 H 18 181/118 H 97 03/24/25 01:35 97.9 F 123 H 20 158/117 H 99 O2 Del Method 03/24/25 11:20 Room Air 03/24/25 09:54 Room Air 03/24/25 09:54 Room Air 03/24/25 09:32 03/24/25 06:34 03/24/25 06:30 Room Air 03/24/25 06:28 03/24/25 05:19 Room Air 03/24/25 05:15 03/24/25 05:15 Room Air 03/24/25 04:44 03/24/25 04:30 Room Air 03/24/25 04:00 Room Air 03/24/25 03:30 Room Air 03/24/25 03:03 Room Air 03/24/25 02:33 Room Air 03/24/25 02:24 03/24/25 02:00 Room Air 03/24/25 01:35 Room Air Coding Level of Care Code 22346 IN/OBS CONSULT LVL 4,60M Diagnoses Nausea & vomiting R11.2 Vomiting type: unspecified Abdominal pain R10.84 Abdominal location: generalized (1) Nausea & vomiting Vomiting type: unspecified Qualified Code(s): R11.2 - Nausea with vomiting, unspecified (2) Abdominal pain Abdominal location: generalized Qualified Code(s): R10.84 - Generalized abdominal pain
--- NOTE | 2025-03-24 13:07 | Electrocardiogram Report ---
Test Reason : Blood Pressure : */* mmHG Vent. Rate : 119 BPM Atrial Rate : 119 BPM P-R Int : 120 ms QRS Dur : 82 ms QT Int : 362 ms P-R-T Axes : 75 81 65 degrees QTcB Int : 509 ms Sinus tachycardia Otherwise normal ECG No previous ECGs available Confirmed by Ramesh Bateman ([id number]) on 03/24/2025 1:07:36 PM Referred By: REFERRED SELF Confirmed By: Ramesh Batemna
[2025-03-24] MEDS ORDERED: LORazepam 2 MG/1 ML VIAL IV PRN (13:09)
--- NOTE | 2025-03-24 13:19 | Psychiatric Consultation ---
Date of Consultation March 24, 2025 Impression / Recommendations Impression Diagnostically unclear, he presents with GI symptoms and history of bipolar disorder with convincing history for past episodes of rema and multiple prior inpatient psychiatric hospitalizations. He's not been taking his psychiatric medications recently, including no recent use of a mood stabilizer. Dellview and lamictal levels are pending. UDS positive for only cannabis. There had been a question of possible hallucinations on his arrival to the hospital but he denies this on exam and doesn't present with any acute symptoms of psychosis nor rema when I meet with him. Substance-induced symptoms possible, and perhaps some of these have now resolved. His brief episodes of pausing to respond could possibly represent thought blocking/internal stimuli but they seemed to be more volitional and driven by anxiety or need to pause to collect his thoughts. Unclear if there is a substance-seeking component given that he seemed well aware of pain medications by name versus due to his recent challenges and desire to be well informed about his care and self-advocacy. Does seem that some in his life have concerns about his cannabis use, referenced his parents disapproval, and reportedly has a history of cannabinoid hyperemesis. Also possible that he's presenting with a more atypical depression with somatic predominance of symptoms (nausea) though this doesn't typically involve pain and did not endorse other symptoms of depression. 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 He did sign ROIs for his outpatient psych provider and for [facility] where he's been hospitalized for inpt psych tx in the past. He declined for his parents. Acute risk of self-harm is low given denial of SI and future oriented. Reasonable to consider trial of mirtazapine to help with mood, appetite, weight gain and nausea. He's found this well tolerated in the past. Olanzapine could be another consideration moving forward as can help with nausea and offers benefits of appetite stimulation and mood stabilization. Overall, I spent a total of 60 minutes with this case including review of chart records, review of labwork, [review of EKG QTc], direct evaluation of the patient at bedside, counseling the patient, discussion of the patient [with the Nurse and] [with the hospitalist provider], discussion with the psychiatric liason during clinical rounds, [review of collateral historian information from the family] and documentation in the electronic health record. (1) Bipolar disorder: (2) Nausea & vomiting: Vomiting type: unspecified Qualified Code(s): R11.2 - Nausea with vomiting, unspecified Plan -Start mirtazapine 7.5mg HS if QTc improves, monitor QTc and would hold if remains >500ms -Psych liasons to attempt further collateral from outpatient provider and to get past [facility] records Psych History Identifying Data John Paul Jo is a 39 year old man from [place] with a past medical history of bipolar disorder, migraines, hypertension who presented to the ED on 03/24/25 for vomiting and abdominal pain. Psychiatry consulted for altered mental status, bipolar diagnosis for medication recommendations. Chief Complaint "I have a lot of stomach pain". History of Present Illness John Paul is unknown to our consult service. He presented to the hospital for ongoing severe stomach pain, nausea, and reported weight loss after he reports being seen at various other local hospitals without any answers or relief for his symptoms. He wonders about having sepsis as he reports this was diagnosed at an outpatient GI practice about 2.5 months ago ([facility]). Attempted to clarify that sepsis is a life threatened infection and typically requires inpatient hospitalization to which he recalled the infection source being "from my psoriasis". He is unsure what causes the symptoms but reports they come in spells and that his parents haven't been supportive which has caused strain in their relationship. Today describes his mood as "ok" but negatively impacted by the pain and nausea. He denies current depressive symptoms. 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 Acknowledges history of bipolar disorder with past episodes of rema resulting in inpatient psych hospitalizations. Thinks he may have had a manic episode in February. He denies current symptoms of rema. While speaking he pauses at times, closes his eyes and doesn't respond. Tells me these are due to his mind "just goes blank sometimes" and that further verbal prompting helps him then answer. He eventually responds to all my questions though did require me asking repeat questions a few times. Psychiatric history notable for 12 lifetime inpt psych hospitalizations (last May 2024 at [facility]), last scripts for psychiatric meds filled in January and he reports not taking any psychiatric medications within recent weeks. He's unsure when he last took any psych medications. He sees Gayathri Franco in the outpatient setting monthly for therapy/medications. No CM. Last scripts filled in January: -Effexor 150mg BID -Dellview 300mg BID -Lamictal 100mg daily -Amitriptyline 25mg HS -Xanax 0.5mg TID prn (prescribed when he left [facility] for physical rehab in January, he reports after deconditioning from GI symptoms leading to significant weight loss). During interview he asks me about benefits of ketamine for pain management as he previously had this while at a [facility] facility for GI pain. Also wonders what specific pain medications his RN will be giving him today. He denies any recent problematic substance use. Reports occasional nicotine vape use and every other day cannabis use. He likes that cannabis helps him with motivation and creativity. Indicates his parents are opposed to his cannabis use. Allergies Allergy/AdvReac Type Severity Reaction Status Date / Time bupropion [From Wellbutrin] Allergy Verified 03/24/25 08:56 Home Medications Medication Instructions Recorded Confirmed Type Unobtainable 03/24/25 03/24/25 History Patient History Surgical History History of cholecystectomy Family History Father Crohn's disease Mother Irritable bowel syndrome Social History (Updated 03/24/25 @ 11:01 by Ioana Mathews MD) Smoking Status: Current every day smoker Tobacco Type: E-cigarettes / Vaping Hx Alcohol Use: No Hx Substance Use: Yes Last Used Substance: Days (ago) Preferred Language: Belarusian Operational Review Sergeant Required: Yes Beliefs That Will Affect Care: None marital status: Single Current Living Situation: Alone current occupational status: employed 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 Feels Safe at Home: Yes Assistive Devices: None Physical Exam Psychiatric: Orientation: alert and oriented x 3 Apperance: appropriately dressed Eye Contact: + fair eye contact Motor Behavior: no abnormal motor movements Speech: normal rate/rhythm/volume of speech Affect: + constricted affect Mood: + anxious mood Thought Process: + concrete thought process Thought Content: reality based without delusions Suicidal Thoughts: denies suicidal thoughts Homicidal Thoughts: denies homicidal thoughts Hallucinations: no auditory hallucinations and no visual hallucinations Insight: + limited insight Judgment: + limited judgement Vital Signs (Past 24 Hours): Last Vital Signs Temp 36.7 C 03/24/25 11:20 Pulse 76 03/24/25 11:20 Resp 20 03/24/25 11:20 BP 99/69 L 03/24/25 11:20 Pulse Ox 98 03/24/25 11:20 O2 Del Method Room Air 03/24/25 11:20 Results & Data (PSY) Medications Administered Lactated Ringer's (Lr) 1,000 mls @ 125 mls/hr IV .Q8H OSMAR Stop: 03/27/25 08:44 Last Admin: 03/24/25 09:08 Dose: 125 mls/hr Documented By: ELIZABETH Coding Level of Care Code 63652 IN/OBS CONSULT LVL 4,60M Diagnoses Bipolar disorder F31.9 Nausea & vomiting R11.2 Vomiting type: unspecified
[2025-03-24] MEDS: ONDANSETRON INJ 2 MG/ML 2 ML VIAL IV PRN (13:23)
[2025-03-24] MEDS: MoRPHine SULFATE 2 MG/ML CARP IV PRN (13:23)
[2025-03-24] MEDS ORDERED: PANTOprazole 40 MG/10 ML SYR IV SCH (19:00)
[2025-03-24] MEDS ORDERED: MIRTAZAPINE TAB 15 MG TAB PO SCH (21:00)
--- NOTE | 2025-03-25 09:29 | Discharge Summary ---
Discharge Summary Date of Service March 25, 2025 Principal Dx & Hospital Course #1 = Principal Diagnosis (1) Nausea & vomiting: (2) Abdominal pain: (3) ROBERT (acute kidney injury): (4) Hypertension: (5) Abnormal behavior: (6) Bipolar disorder: (7) Hypokalemia: Plan This is a 39 year old gentleman with past medical history of bipolar disorder, migraines, hypertension who presented to the ED on 03/24/25 for vomiting and abdominal pain. While in the ED, he was found to be hypertensive and tachycardic. He did have a CBC that was without leukocytosis. His CMP did reveal mild hyponatremia of 134, mild hypokalemia of 3.4, elevated creatinine of 1.89, total bilirubin 2.3 but remainder of LFTs WNL. His lactate was initially elevated at 3.5. After 2.5 L of fluid, patient did have decreased to 3. His lipase was WNL at 38, pr ocalcitonin was negative at 0.08. Urinalysis was negative for infection. His toxicology screening did reveal that he was positive for marijuana. [place] and Lamictal levels are pending. His CTAP was negative for any acute pathology. Chest x-ray was negative. Head CT was negative. Chest CTA did reveal esophagitis, negative for PE. Blood cultures were obtained. He was given IV fluids, Reglan, Zofran, Phenergan, Ativan, labetalol, Pepcid, pantoprazole, and fentanyl. #Nausea/vomiting/abdominal pain - With 4 months of ongoing symptoms. Appears he has been tried on pantoprazole and capsaicin cream in past per med list. CTAP without acute pathology in the abdomen CTA negative for PE, did reveal esophagitis Unsure if patient has had endoscopies in pastrefused to answer, but later told attending physician he had 2 EGDs in the last couple of months at [facility]-showed bleeding in esophagus CBC without leukocytosis, lipase within normal limits, Procal negative CMP with elevation of total bilirubin at 2.3, direct bilirubin 0.3. Remainder of LFTs WNL Lactate elevated at 3.5, decreased to 3 after IV fluids Blood cultures pending, s/p IV cefepime in ED but no further antibiotics recommended given normal WBC, negative procal, negative imaging GI consulted --> recommending amitriptyline for marijuana induced hyperemesis. Given Qtc > 500 defer amitryptyline currently. Recommend re-eval outpatient. #ROBERT/hypokalemia Creatinine elevated at time of admission at 1.89, unsure of patient's baseline S/p IV fluids in ED Potassium mildly low at 3.4s/p repletion #HTN With hypertension since presenting to the ED S/p IV labetalol Unsure if he is compliant with his antihypertensive (amlodipine) and clonidine? at home #Bipolar disorder/abnormal behavior With abnormal behavior in ED. He appeared to have a depressed mood at times, refused to answer questions at times, and also appeared tangential. Also w/ auditory hallucinations per nursing. Drug screen positive for marijuana Psych consulted --> consider mirtazapine vs olanzapine however w/ Qtc > 500 defer for now. Concern for drug seeking behavior. (following encounter, morphine discontinued) Per medication list that is unconfirmedappears he was taking Abilify 10 mg daily, Lamictal 100 mg daily, lithium 300 mg twice daily, Ativan 0.5 mg as needed, risperidone 0.25 mg as needed Effexor 150 mg twice daily Patient signed out AMA overnight. Admission HPI Per Admitting Provider This is a 39 year old gentleman with past medical history of bipolar disorder, migraines, hypertension who presented to the ED on 03/24/25 for vomiting and abdominal pain. The patient was seen and examined this morning. Upon my encounter, patient was lying in the position in his bed. He did not respond to his name initially but then did. He initially reported that he was having depression and was trying to go out in public more with his friends. He reported that he is "staying up until 2am drinking soda pop, water, and eating some pizza". John Paul then went on to tell me that he has been having ongoing vomiting and abdominal pain for ~4 months. He states it comes in waves meaning a "worse" wave and an "even worse" wave. He reports severe abdominal pain as well. He states he sometimes does feel nauseous prior to vomiting and other times it just comes up. Initially he did say he was having hematemesis but then denied it. He has not had a BM in 3 days but attributes this to not eating. He has been seen in the past by GI but would not answer if he has had a scope in the past. He denies any chest pain or shortness of breath. He denies lower extremity edema. He denies any urinary urgency/frequency/ or hematuria. He did not answer about what medications he has been taking at home. During my exam, John Paul would refuse to answer questions at times. He was tangential at times. He was also tearful While in the ED, he was found to be hypertensive and tachycardic. He did have a CBC that was without leukocytosis. His CMP did reveal mild hyponatremia of 134, mild hypokalemia of 3.4, elevated creatinine of 1.89, total bilirubin 2.3 but remainder of LFTs WNL. His lactate was initially elevated at 3.5. After 2.5 L of fluid, patient did have decreased to 3. His lipase was WNL at 38, procalcitonin was negative at 0.08. Urinalysis was negative for infection. His toxicology screening did reveal that he was positive for marijuana. [place] and Lamictal levels are pending. His CTAP was negative for any acute pathology. Chest x-ray was negative. Head CT was negative. Chest CTA did reveal esophagitis, negative for PE. Blood cultures were obtained. He was given IV fluids, Reglan, Zofran, Phenergan, Ativan, labetalol, Pepcid, pantoprazole, and fentanyl. Discharge Plan Discharge Items Patient Disposition: Against Medical Advice Reason For Visit: VOMITING, ABDOMINAL PAIN Discharge Diagnosis: abdominal pain Condition on Discharge: Fair Activity: Resume your previous activity Non-emergency contact: Primary Care Provider Call non-emergency contact if: you have any medication questions and your symptoms worsen Follow-up/Referrals: PCP,NO [Primary Care Provider] - Diet: Regular Addtl Attending Provider Instructions: You are leaving against medical advice. Please return if your symptoms persist or worsen. Please follow up as soon as possible with your primary care doctor. Pending Studies at Discharge: No Stand-Alone Forms: My [facility] [employer], Work/School Release, Smoking Cessation Medications and DC Order Prescriptions: No Action Unobtainable Rx Instructions: PT REFUSING TO ANSWER QUESTIONS AT THIS TIME. Discharge Orders: Left Against Medical Advice (Routine); Ordered 03/24/25 Ordered By: Issac Grayson Admission Data Admit Date/Time: 03/24/25 08:38 Attending Provider: Ioana Mathews Admit Provider: Lian Duque Primary Care Provider: PCP,NO Other Providers: Ioana Mathews; Jinny Ball; Arian Emery; Em Couch; Vy Mata; Hetal Pierce; Samantha Gu; Brent Rivas; Shyam Dotson; Darvin Graves; Kayy Mc; Latoya Morris; Sierra Smith; Gaby Catherine; Maude Louis; Daniela Luna; Thomas Munoz; Leobardo Ruiz; Laury Jordan; Kushal Lawson Jr; Marcus Olsen; Abran Hammond; Ryan Blank; Beni Orellana; Joseline Blair; Shay Flores I; Daphnie Milner; Taiwo Hernandez; Doroteo Paige; Shila Alexander; Lupillo Sanchez; Gricelda Gomez; Sandra Smith; Giorgi Vaughan; Sallie Alonzo Hospital Stay Data Consultations 03/24/25 08:11 ED Decision to Admit Stat 03/24/25 08:38 Consult Gastroenterology Routine Consult Psychiatry Routine Diagnostic Imagining Performed 03/24/25 01:57 CT abd pelvis IV con only Stat 03/24/25 04:39 CT head/brain wo con Stat 03/24/25 05:14 CT angio chest PE protocol Stat Pending Results Patient Have Any Pending Studies at Discharge: No Discharge Instructions Given to Patient (Per Discharging Provider) You are leaving against medical advice. Please return if your symptoms persist or worsen. Please follow up as soon as possible with your primary care doctor. Supervising Physician Co-Signing Physician Notes PA Supervision Note: I did not personally see or examine the patient today, but I verified all squires points of BETHANY Duque's assessment and plan with the following exceptions/additions: Patient left AGAINST MEDICAL ADVICE overnight and was not seen and did not have any repeat evaluation prior to discharge Total Time Total Time Spent Total Time Spent (In Minutes): 30 Total Time Includes: Discharge Planning Coding Level of Care Code 71074 INP/OBS DISCH >30 MIN Diagnoses Nausea & vomiting R11.2 Vomiting type: unspecified Abdominal pain R10.84 Abdominal location: generalized ROBERT (acute kidney injury) N17.9 Hypertension I10 Abnormal behavior R46.89 Bipolar disorder F31.9 Hypokalemia E87.6
[2025-03-26 14:43] LABS: Marijuana Quant, GCMS Urine 400 ng/mL (<5)
== END 2025-03-24 20:38 | disposition left against medical advice (07) ==
LOC: ED 01:34 → EDINP 01:34 → 2S 10:21